=== PATIENT | female | born 1995 | race African-American/Black ===

== ENCOUNTER 2016-08-03 10:28 | Emergency (ER) | payer SELFPAY ==
[~2016-08-03] VITALS: Ht 160 cm; Wt 57.2 kg
[~2016-08-03 10:28] MED LIST: ALPR0.5T8 PO
--- NOTE | 2016-08-03 12:15 | NUR ---
Patient discharged to home in stable conditon. Written and verbal after care instructions given. Patient verbalizes understanding of instructions.
== END 2016-08-03 12:16 | disposition home or self-care (01) ==
LOC: ER 10:28
DX: S63.602A Unspecified sprain of left thumb, initial encounter (principal); X58.XXXA Exposure to other specified factors, initial encounter; Y93.89 Activity, other specified; Y99.8 Other external cause status; Y92.89 Other specified places as the place of occurrence of the external cause
CPT/HCPCS: 73140; A4663

== ENCOUNTER 2017-05-24 08:44 | Emergency (ER) | payer SELFPAY ==
[~2017-05-24] VITALS: Ht 160 cm; Wt 54.4 kg
--- NOTE | 2017-05-24 09:15 | NUR ---
PT IS IN ROOM #2B, DR CHOUDHURY EVALUATED THE PT.
[2017-05-24 11:06] VITALS: BP 122/74
--- NOTE | 2017-05-24 11:06 | NUR ---
PT WAS D/C TO HOME. D/C INSTRUCTIONS GIVEN TO THE PT.
== END 2017-05-24 11:20 | disposition home or self-care (01) ==
LOC: ER 08:44
DX: J06.9 Acute upper respiratory infection, unspecified (principal)
CPT/HCPCS: 36415; 86403; 87070; 87400; A4663